=== PATIENT | female | born 1980 | race Caucasian/White ===

== ENCOUNTER 2021-09-01 22:16 | Emergency (ER) | payer OTHER ==
[2021-09-01 22:23] VITALS: RESP 18
[2021-09-01 23:31] LABS: Basophils % (A) 0 %; Eosinophils # (A) 0.3 k/uL (0-0.7); Eosinophils % (A) 3 %; HCT 40.5 % (34.0-46.0); HGB 13.4 gm/dL (11.4-16.0); Lymphocytes # (A) 2.9 k/uL (1.0-4.8); Lymphocytes % (A) 27 %; MCH 30.4 pg (25.0-35.0); MCHC 33.1 g/dL (31.0-37.0); MCV 91.9 fL (80.0-100.0); Mean Platelet Volume 7.5; Monocytes # (A) 0.4 k/uL (0-1.0); Monocytes % (A) 3 %; Neutrophils % (A) 65 %; Platelet Count 410 k/uL (150-450); RBC 4.41 m/uL (3.80-5.40); RDW 12.9 % (11.5-15.5); WBC 10.8 k/uL (3.8-10.6)
[2021-09-02 00:06] LABS: ALT 22 U/L (4-34); AST 31 U/L (14-36); African American GFR (CKD) >90 (>60 ml/min/1.73 sqM); Albumin 4.3 g/dL (3.5-5.0); Alkaline Phosphatase 78 U/L (38-126); Anion Gap 8 mmol/L; Blood Urea Nitrogen 11 mg/dL (7-17); Calcium 9.2 mg/dL (8.4-10.2); Carbon Dioxide 21 mmol/L (22-30); Chloride 107 mmol/L (98-107); Glucose 103 mg/dL (74-99); Non-African American GFR(CKD) >90 (>60 ml/min/1.73 sqM); Potassium 3.9 mmol/L (3.5-5.1); Sodium 136 mmol/L (137-145); Total Bilirubin 0.6 mg/dL (0.2-1.3); Total Protein 7.5 g/dL (6.3-8.2)
[2021-09-02 00:36] LABS: Appearance,Urine Clear (Clear); Bilirubin,Urine Negative (Negative); Blood,Urine Large (Negative); Color,Urine Light Red; Glucose,Urine (UA) Negative (Negative); Ketones,Urine Negative (Negative); Leukocyte Esterase,Urine Trace (Negative); Mucus,Urine Rare /hpf; Nitrite,Urine Negative (Negative); PH, Urine 5.5 (5.0-8.0); Protein,Urine 1+ (Negative); RBC,Urine >182 /hpf (0-5); Specific Gravity,Urine 1.014 (1.001-1.035); Urobilinogen,Urine <2.0 mg/dL (<2.0); WBC,Urine >182 /hpf (0-5)
--- NOTE | 2021-09-02 00:47 | ED ---
Abdominal Pain HPI - General Chief Complaint: Vaginal Bleeding Stated Complaint: Vaginal Bleeding,N/V,Back Pain Time Seen by Provider: 09/02/21 00:03 Source: patient, family, RN notes reviewed, old records reviewed Mode of arrival: wheelchair Limitations: no limitations - History of Present Illness Initial Comments: This is a 41-year-old female to the emergency department for evaluation. Patient coming in for evaluation multiple complaints patient feels very cold weak and tired. She does have significant back pain as well as abdominal pain. Patient has no other complaints. Patient does suffer from significantly heavy periods with significant amount of pain with her periods recently started on in control otherwise no medical history takes no medications does have history of fibroids but no surgeries MD Complaint: abdominal pain -: days(s) (4) Location: suprapubic Radiation: suprapubic, back Migration to: suprapubic, bilateral flank Severity: severe Severity scale (1-10): 8 Quality: aching, sharp Improves With: nothing Worsens With: nothing Associated Symptoms: nausea, fever Treatments Prior to Arrival: NSAIDs - Related Data Previous Rx's Medication Instructions Recorded Cephalexin [Keflex] 500 mg PO Q6HR #28 cap 09/02/21 Allergies Allergy/AdvReac Type Severity Reaction Status Date / Time No Known Allergies Allergy Verified 09/01/21 22:23 Review of Systems ROS Statement: Those systems with pertinent positive or pertinent negative responses have been documented in the HPI. ROS Other: All systems not noted in ROS Statement are negative. Past Medical History Past Medical History: No Reported History History of Any Multi-Drug Resistant Organisms: MRSA Date of last positivie culture/infection: 03/26/21 MDRO Source:: MRSA EAR Past Surgical History: No Surgical Hx Reported Past Psychological History: No Psychological Hx Reported Smoking Status: Current every day smoker Past Alcohol Use History: Rare Past Drug Use History: None Reported General Exam General appearance: alert, in no apparent distress, anxious Head exam: Present: atraumatic, normocephalic, normal inspection Eye exam: Present: normal appearance, PERRL, EOMI. Absent: scleral icterus, conjunctival injection, periorbital swelling ENT exam: Present: normal exam, mucous membranes moist Neck exam: Present: normal inspection. Absent: tenderness, meningismus, lymphadenopathy Respiratory exam: Present: normal lung sounds bilaterally. Absent: respiratory distress, wheezes, rales, rhonchi, stridor Cardiovascular Exam: Present: normal rhythm, tachycardia, normal heart sounds. Absent: systolic murmur, diastolic murmur, rubs, gallop, clicks GI/Abdominal exam: Present: soft, normal bowel sounds. Absent: distended, tenderness, guarding, rebound, rigid Extremities exam: Present: normal inspection, full ROM, normal capillary refill. Absent: tenderness, pedal edema, joint swelling, calf tenderness Back exam: Present: normal inspection Neurological exam: Present: alert, oriented X3, CN II-XII intact Psychiatric exam: Present: normal affect, normal mood Skin exam: Present: warm, dry, intact, normal color. Absent: rash Course Vital Signs 09/01/21 09/02/21 22:19 02:11 Temperature 100.3 F H Pulse Rate 111 H 82 Respiratory 18 18 Rate Blood Pressure 148/94 126/77 O2 Sat by Pulse 100 99 Oximetry - Reevaluation(s) Reevaluation #1: 09/02/21 01:35 Medical record is reviewed Reevaluation #2: 09/02/21 01:35 Patient informed of her recurrent fever Reevaluation #3: 09/02/21 03:00 Patient informed results and questions answered Reevaluation #4: 09/02/21 03:00 Patient does not currently feel like she might pass out Medical Decision Making - Medical Decision Making 41-year-old female DF for evaluation patient coming with excessive vaginal bleeding had a vaginal bleeding. Patient hemoglobin is not a treatable limit here in the emergency department. Patient will be placed on antibiotics secondary to fever likely UTI. Patient placed on antibiotics and can be discharged home - Lab Data Result diagrams: 09/01/21 23:21 09/01/21 23:21 Lab Results 09/01/21 09/01/21 09/02/21 Range/Units 23:21 23:21 00:24 WBC 10.8 H (3.8-10.6) k/uL RBC 4.41 (3.80-5.40) m/uL Hgb 13.4 (11.4-16.0) gm/dL Hct 40.5 (34.0-46.0) % MCV 91.9 (80.0-100.0) fL MCH 30.4 (25.0-35.0) pg MCHC 33.1 (31.0-37.0) g/dL RDW 12.9 (11.5-15.5) % Plt Count 410 (150-450) k/uL MPV 7.5 Neutrophils % 65 % Lymphocytes % 27 % Monocytes % 3 % Eosinophils % 3 % Basophils % 0 % Neutrophils # 7.0 (1.3-7.7) k/uL Lymphocytes # 2.9 (1.0-4.8) k/uL Monocytes # 0.4 (0-1.0) k/uL Eosinophils # 0.3 (0-0.7) k/uL Basophils # 0.0 (0-0.2) k/uL Sodium 136 L (137-145) mmol/L Potassium 3.9 (3.5-5.1) mmol/L Chloride 107 (98-107) mmol/L Carbon Dioxide 21 L (22-30) mmol/L Anion Gap 8 mmol/L BUN 11 (7-17) mg/dL Creatinine 0.63 (0.52-1.04) mg/dL Est GFR (CKD-EPI)AfAm >90 (>60 ml/min/1.73 sqM) Est GFR (CKD-EPI)NonAf >90 (>60 ml/min/1.73 sqM) Glucose 103 H (74-99) mg/dL Calcium 9.2 (8.4-10.2) mg/dL Total Bilirubin 0.6 (0.2-1.3) mg/dL AST 31 (14-36) U/L ALT 22 (4-34) U/L Alkaline Phosphatase 78 (38-126) U/L Total Protein 7.5 (6.3-8.2) g/dL Albumin 4.3 (3.5-5.0) g/dL Urine Color Light Red Urine Appearance Clear (Clear) Urine pH 5.5 (5.0-8.0) Ur Specific [place] 1.014 (1.001-1.035) Urine Protein 1+ H (Negative) Urine Glucose (UA) Negative (Negative) Urine Ketones Negative (Negative) Urine Blood Large H (Negative) Urine Nitrite Negative (Negative) Urine Bilirubin Negative (Negative) Urine Urobilinogen <2.0 (<2.0) mg/dL Ur Leukocyte Esterase Trace H (Negative) Urine RBC >182 H (0-5) /hpf Urine WBC >182 H (0-5) /hpf Urine Mucus Rare H (None) /hpf Urine HCG, Qual (Not Detectd) 09/02/21 Range/Units 00:24 WBC (3.8-10.6) k/uL RBC (3.80-5.40) m/uL Hgb (11.4-16.0) gm/dL Hct (34.0-46.0) % MCV (80.0-100.0) fL MCH (25.0-35.0) pg MCHC (31.0-37.0) g/dL RDW (11.5-15.5) % Plt Count (150-450) k/uL MPV Neutrophils % % Lymphocytes % % Monocytes % % Eosinophils % % Basophils % % Neutrophils # (1.3-7.7) k/uL Lymphocytes # (1.0-4.8) k/uL Monocytes # (0-1.0) k/uL Eosinophils # (0-0.7) k/uL Basophils # (0-0.2) k/uL Sodium (137-145) mmol/L Potassium (3.5-5.1) mmol/L Chloride (98-107) mmol/L Carbon Dioxide (22-30) mmol/L Anion Gap mmol/L BUN (7-17) mg/dL Creatinine (0.52-1.04) mg/dL Est GFR (CKD-EPI)AfAm (>60 ml/min/1.73 sqM) Est GFR (CKD-EPI)NonAf (>60 ml/min/1.73 sqM) Glucose (74-99) mg/dL Calcium (8.4-10.2) mg/dL Total Bilirubin (0.2-1.3) mg/dL AST (14-36) U/L ALT (4-34) U/L Alkaline Phosphatase (38-126) U/L Total Protein (6.3-8.2) g/dL Albumin (3.5-5.0) g/dL Urine Color Urine Appearance (Clear) Urine pH (5.0-8.0) Ur Specific [place] (1.001-1.035) Urine Protein (Negative) Urine Glucose (UA) (Negative) Urine Ketones (Negative) Urine Blood (Negative) Urine Nitrite (Negative) Urine Bilirubin (Negative) Urine Urobilinogen (<2.0) mg/dL Ur Leukocyte Esterase (Negative) Urine RBC (0-5) /hpf Urine WBC (0-5) /hpf Urine Mucus (None) /hpf Urine HCG, Qual Not Detected (Not Detectd) - Radiology Data Radiology results: report reviewed (CT head and pelvis is negative for significant acute findings), image reviewed Disposition Clinical Impression: UTI (urinary tract infection), Menorrhagia, Dysfunctional uterine bleeding, Vaginal bleeding Disposition: HOME SELF-CARE Condition: Fair Instructions (If sedation given, give patient instructions): Menorrhagia (ED) Prescriptions: Cephalexin [Keflex] 500 mg PO Q6HR #28 cap Is patient prescribed a controlled substance at d/c from ED?: No Referrals: Harris David MD [Primary Care Provider] - 1-2 days Esther Interiano DO [Doctor of Osteopathic Medicine] - 1-2 days
[2021-09-02] MEDS ORDERED: SODIUM CHLORIDE 0.9% 1,000 ML IV STA (00:59)
[2021-09-02] MEDS ORDERED: ACETAMINOPHEN TAB 500 MG TAB PO STA (01:00)
[2021-09-02] MEDS ORDERED: MORPHINE SULFATE 4 MG/ML SYRINGE IVP STA (01:00)
[2021-09-02] MEDS ORDERED: KETOROLAC 15 MG/ML 1 ML VIAL IVP STA (01:00)
--- NOTE | 2021-09-02 02:46 | CT ---
EXAMINATION TYPE: CT abdomen pelvis w con DATE OF EXAM: 09/02/2021 COMPARISON: None HISTORY: Abd Pain, N/V, Vaginal Bleeding CT DLP: 911.7 mGycm Automated exposure control for dose reduction was used. CONTRAST: Performed with IV Contrast, patient injected with 100 mL of Isovue 300. Images obtained from the diaphragm to the floor of the pelvis with IV contrast. Lung bases are clear. There is no pleural effusion. Heart size is normal. There is no pericardial eff usion. Liver spleen and stomach pancreas appear intact. There is single calcified gallstone. The bile ducts are not dilated. Gallbladder has normal size. There is no adrenal mass. Kidneys show satisfactory contrast opacification. There is no hydronephrosi s. Delayed images show normal renal excretion. There is no retroperitoneal adenopathy. There is a con e-shaped device in the vagina. The rectum appears normal. There is enlarged uterine fundus consistent with fibroids. There is no adnexal mass. No free fluid in the pelvis. Appendix is lateral and appear s small. There is no mesenteric edema. No ascites or free air. No bowel obstruction. IMPRESSION: There is a 3.6 cm diameter object in the vagina which is elongated and cylindrical and cone-shaped wi th some fluid at the upper end of the vagina. This could be a portion of the urinary bladder effaced and pinched off by the device.
[2021-09-02] MEDS ORDERED: ONDANSETRON 4 MG ODT STARTER PACK 2 TAB BTL PO STA (02:57)
[2021-09-02] MEDS ORDERED: CEPHALEXIN 500MG STARTER PACK 4 CAP BTL PO STA (02:57)
[2021-09-02] MEDS ORDERED: ACET/COD 300 MG/30 MG STARTER PACK 6 TAB BTL PO STA (02:57)
[2021-09-02] MEDS ORDERED: cefTRIAXone IN SWFI 1,000 MG/10 ML SYRINGE IVP STA (02:59)
[2021-09-02 03:13] VITALS: BP 124/79; PULSE 84; TEMP 98.8
== END 2021-09-02 03:15 | disposition home or self-care (01) ==
LOC: EC 22:16
DX: N92.0 Excessive and frequent menstruation with regular cycle (principal); N93.8 Other specified abnormal uterine and vaginal bleeding; N39.0 Urinary tract infection, site not specified; F17.200 Nicotine dependence, unspecified, uncomplicated
CPT/HCPCS: 36415; 80053; 85025; 81001; 81025; 74177; 99284; 96374; 96375 ×2; 96361; J2270; J0696; J1885; S0119; Q9967

== ENCOUNTER → 2022-01-22 | Outpatient (CLI) | payer OTHER ==
--- NOTE | 2022-01-23 09:42 | MM ---
Reason for Exam: Screening (asymptomatic). Last mammogram was performed 1 year(s) and 4 month(s) ago. Patient History: Hormonal Contraceptives for 4 years from age 37 until age 41. Risk Values: Elinor 5 year model risk: 0.4%. NCI Lifetime model risk: 6.7%. Prior Study Comparison: 09/13/2020 Bilateral MG screening mammo w CAD - 2, [facility]. Tissue Density: The breast tissue is extremely dense which could obscure a lesion on mammography. Findings: Analyzed By CAD. There is no suspicious group of microcalcifications or new suspicious mass in either breast. Stable benign-appearing calcifications bilaterally. Overall Assessment: Benign, BI-RAD 2 Management: Screening Mammogram of both breasts in 1 year. A clinical breast exam by your physician is recommended on an annual basis and results should be correlated with mammographic findings. Electronically signed and approved by: Franklin Ordonez D.O.
== END | disposition home or self-care (01) ==
LOC: RADMAMWWP 16:45
PROVIDERS: ATTEND Obstetrics & Gynecology
DX: Z12.31 Encounter for screening mammogram for malignant neoplasm of breast (principal); R92.1 Mammographic calcification found on diagnostic imaging of breast
CPT/HCPCS: 77063; 77067

== ENCOUNTER 2024-05-09 06:33 | Emergency (ER) | payer BC ==
[2024-05-09 06:51] VITALS: TEMP 97.5
--- NOTE | 2024-05-09 07:22 | ED ---
General Adult HPI - General Chief complaint: Nausea/Vomiting/Diarrhea Stated complaint: NVD, Fever, 4 weeks preg Time Seen by Provider: 05/09/24 06:56 Source: patient, RN notes reviewed Mode of arrival: ambulatory Limitations: no limitations - History of Present Illness Initial comments: 44-year-old G1, P0 female presents to the emergency department for evaluation of abdominal pain, nausea, vomiting. Patient reports that his symptoms started early this morning. Patient reports pain in the right side of her abdomen into her groin. She also reports pain in her right flank. She admits to nausea, vomiting, chills. No documented fever. She has not taken anything for her pain. Patient reports that her last menstrual period was April 05 and she recently had a positive test. She follows with Dr. Interiano for gynecology. - Related Data Previous Rx's Medication Instructions Recorded Cephalexin [Keflex] 500 mg PO Q6HR #28 cap 09/02/21 Cephalexin [Keflex] 500 mg PO Q6HR #40 cap 05/09/24 Doxylamine Succinate [Unisom] 25 mg PO DAILY #14 tab 05/09/24 Metoclopramide HCl [Reglan] 5 mg PO TID PRN #15 tablet 05/09/24 Allergies Allergy/AdvReac Type Severity Reaction Status Date / Time No Known Allergies Allergy Verified 05/09/24 06:51 Review of Systems ROS Statement: Those systems with pertinent positive or pertinent negative responses have been documented in the HPI. ROS Other: All systems not noted in ROS Statement are negative. Past Medical History Past Medical History: No Reported History History of Any Multi-Drug Resistant Organisms: MRSA Date of last positivie culture/infection: 03/26/21 MDRO Source:: MRSA EAR Past Surgical History: No Surgical Hx Reported Past Psychological History: No Psychological Hx Reported Smoking Status: Current every day smoker Past Alcohol Use History: Rare Past Drug Use History: None Reported General Exam Limitations: no limitations General appearance: alert, in no apparent distress Head exam: Present: atraumatic, normocephalic, normal inspection Eye exam: Present: normal appearance, PERRL, EOMI. Absent: scleral icterus, conjunctival injection, periorbital swelling ENT exam: Present: normal exam, mucous membranes moist Respiratory exam: Present: normal lung sounds bilaterally. Absent: respiratory distress, wheezes, rales, rhonchi, stridor Cardiovascular Exam: Present: regular rate, normal rhythm, normal heart sounds. Absent: systolic murmur, diastolic murmur, rubs, gallop, clicks GI/Abdominal exam: Present: soft, tenderness (Right lower abdomen), normal bowel sounds. Absent: distended, guarding, rebound, rigid Extremities exam: Present: normal inspection, full ROM, normal capillary refill. Absent: tenderness, pedal edema, joint swelling, calf tenderness Back exam: Present: CVA tenderness (R) Neurological exam: Present: alert, oriented X3 Psychiatric exam: Present: normal affect, normal mood Skin exam: Present: warm, dry, intact, normal color. Absent: rash Course Vital Signs 05/09/24 06:49 Temperature 97.5 F L Pulse Rate 92 Respiratory 18 Rate Blood Pressure 142/76 O2 Sat by Pulse 100 Oximetry Medical Decision Making - Medical Decision Making Was pt. sent in by a medical professional or institution (, PA, OFFC SPEC, urgent care, hospital, or group home...) When possible be specific @ -[No] Did you speak to anyone other than the patient for history (EMS, parent, family, police, friend...)? What history was obtained from this source @ -[Patient's provided some history of this patient] Did you review nursing and triage notes (agree or disagree)? Why? @ -[I reviewed and agree with nursing and triage notes] Were old charts reviewed (outside hosp., previous admission, EMS record, old EK G, old radiological studies, urgent care reports/EKG's, group home records)? Report findings @ -[No old charts were reviewed] Differential Diagnosis (chest pain, altered mental status, abdominal pain women, abdominal pain men, vaginal bleeding, weakness, fever, dyspnea, syncope, headache, dizziness, GI bleed, back pain, seizure, CVA, palpatations, mental health, musculoskeletal)? @ -[Differential Abdominal Pain Women: Appendicitis, Cholecystitis, diverticulosis, ischemic bowel, pancreatitis, hepatitis, UTI, gastroenteritis, AAA, incarcerated hernia, bowel obstruction, constipation, inflammatory bowel, hepatitis, peptic ulcer disease, splenic infarction, perforated viscus, vulvitis, ovarian torsion, PID, kidney stone, placenta abruption, this is not meant to be an all-inclusive list ] EKG interpreted by me (3pts min.). @ -None X-rays interpreted by me (1pt min.). @ -[None done] CT interpreted by me (1pt min.). @ -[None done] U/S interpreted by me (1pt. min.). @ -[None done] What testing was considered but not performed or refused? (CT, X-rays, U/S, labs)? Why? @ -[None] What meds were considered but not given or refused? Why? @ -[None] Did you discuss the management of the patient with other professionals (professionals i.e. , PA, OFFC SPEC, lab, RT, psych nurse, social worker clinical, hydrotherapist, teacher, promotion officer, case preparer and liner)? Give summary @ -[No] Was smoking cessation discussed for >3mins.? @ -[No] Was critical care preformed (if so, how long)? @ -[No] Were there social determinants of health that impacted care today? How? (Homelessness, low income, unemployed, alcoholism, drug addiction, transportation, low edu. Level, literacy, decrease access to med. care, usp, rehab)? @ -[No] Was there de-escalation of care discussed even if they declined (Discuss DNR or withdrawal of care, Hospice)? DNR status @ -[No] What co-morbidities impacted this encounter? (DM, HTN, Smoking, COPD, CAD, Cancer, CVA, ARF, Chemo, Hep., AIDS, mental health diagnosis, sleep apnea, morbid obesity)? @ -[None] Was patient admitted / discharged? Hospital course, mention meds given and route, prescriptions, significant lab abnormalities, going to OR and other pertinent info. @ -[hospital course] Undiagnosed new problem with uncertain prognosis? @ -[No] Drug Therapy requiring intensive monitoring for toxicity (Heparin, Nitro, Insulin, Cardizem)? @ -[No] Were any procedures done? @ -[No] Diagnosis/symptom? @ -[default] Acute, or Chronic, or Acute on Chronic? @ -[default] Uncomplicated (without systemic symptoms) or Complicated (systemic symptoms)? @ -[default] Side effects of treatment? @ -[No] Exacerbation, Progression, or Severe Exacerbation? @ -[No] Poses a threat to life or bodily function? How? (Chest pain, [place], [place], pneumonia, PE, COPD, DKA, ARF, appy, cholecystitis, CVA, Diverticulitis, Homicidal, Suicidal, threat to staff... and all critical care pts) @ -[No] - Lab Data Result diagrams: 05/09/24 08:08 05/09/24 08:08 Lab Results 05/09/24 05/09/24 05/09/24 Range/Units 08:08 08:08 11:16 WBC 18.7 H (3.8-10.6) k/uL RBC 4.54 (3.80-5.40) m/uL Hgb 12.3 (11.4-16.0) gm/dL Hct 37.4 (34.0-46.0) % MCV 82.4 (80.0-100.0) fL MCH 27.2 (25.0-35.0) pg MCHC 33.0 (31.0-37.0) g/dL RDW 16.9 H (11.5-15.5) % Plt Count 360 (150-450) k/uL MPV 8.0 Neutrophils % 91 % Lymphocytes % 6 % Monocytes % 2 % Eosinophils % 1 % Basophils % 0 % Neutrophils # 17.1 H (1.3-7.7) k/uL Lymphocytes # 1.1 (1.0-4.8) k/uL Monocytes # 0.3 (0-1.0) k/uL Eosinophils # 0.1 (0-0.7) k/uL Basophils # 0.0 (0-0.2) k/uL Anisocytosis Slight Sodium 136 L (137-145) mmol/L Potassium 4.3 (3.5-5.1) mmol/L Chloride 106 (98-107) mmol/L Carbon Dioxide 21 L (22-30) mmol/L Anion Gap 9 mmol/L BUN 9 (7-17) mg/dL Creatinine 0.66 (0.52-1.04) mg/dL Est GFR (CKD-EPI)AfAm >90 (>60 ml/min/1.73 sqM) Est GFR (CKD-EPI)NonAf >90 (>60 ml/min/1.73 sqM) Glucose 141 H (74-99) mg/dL Calcium 9.3 (8.4-10.2) mg/dL Total Bilirubin 0.8 (0.2-1.3) mg/dL AST 27 (14-36) U/L ALT 28 (4-34) U/L Alkaline Phosphatase 103 (38-126) U/L Total Protein 7.1 (6.3-8.2) g/dL Albumin 4.4 (3.5-5.0) g/dL Lipase 65 (23-300) U/L HCG, Quant 5250.4 mIU/mL Urine Color Colorless Urine Appearance Clear (Clear) Urine pH 5.5 (5.0-8.0) Ur Specific [place] 1.020 (1.001-1.035) Urine Protein Negative (Negative) Urine Glucose (UA) Negative (Negative) Urine Ketones 3+ H (Negative) Urine Blood Small H (Negative) Urine Nitrite Negative (Negative) Urine Bilirubin Negative (Negative) Urine Urobilinogen <2.0 (<2.0) mg/dL Ur Leukocyte Esterase Negative (Negative) Urine RBC 7 H (0-5) /hpf Urine WBC 1 (0-5) /hpf Ur Squamous Epith Cells 3 (0-4) /hpf Urine Bacteria Occasional H (None) /hpf Hyaline Casts 1 (0-2) /lpf Urine Mucus Few H (None) /hpf Disposition Clinical Impression: Abdominal pain Disposition: HOME SELF-CARE Condition: Stable Instructions (If sedation given, give patient instructions): Abdominal Pain in (ED) Additional Instructions: Please follow up with DIRECTOR OF PHYSICAL EDUCATION. Return to the emergency department for new or worsening symptoms. Prescriptions: Cephalexin [Keflex] 500 mg PO Q6HR #40 cap Metoclopramide HCl [Reglan] 5 mg PO TID PRN #15 tablet PRN Reason: Nausea Doxylamine Succinate [Unisom] 25 mg PO DAILY #14 tab Is patient prescribed a controlled substance at d/c from ED?: No Referrals: Harris David MD [Primary Care Provider] - 1-2 days
[2024-05-09] MEDS: METOCLOPRAMIDE 5 MG/ML 2 ML VIAL IVP STA ×2 (08:15→13:17)
[2024-05-09] MEDS: diphenhydrAMINE 50 MG/ML 1 ML VIAL IVP STA ×2 (08:15→13:17)
[2024-05-09] MEDS: SODIUM CHLORIDE 0.9% 1,000 ML IV ONE (08:16)
[2024-05-09 08:17] LABS: Anisocytosis Slight; Basophils % (A) 0 %; Eosinophils # (A) 0.1 k/uL (0-0.7); Eosinophils % (A) 1 %; HCT 37.4 % (34.0-46.0); HGB 12.3 gm/dL (11.4-16.0); Lymphocytes # (A) 1.1 k/uL (1.0-4.8); Lymphocytes % (A) 6 %; MCH 27.2 pg (25.0-35.0); MCV 82.4 fL (80.0-100.0); Monocytes # (A) 0.3 k/uL (0-1.0); Monocytes % (A) 2 %; Neutrophils # (A) 17.1 k/uL (1.3-7.7); Neutrophils % (A) 91 %; Platelet Count 360 k/uL (150-450); RBC 4.54 m/uL (3.80-5.40); RDW 16.9 % (11.5-15.5); WBC 18.7 k/uL (3.8-10.6)
--- NOTE | 2024-05-09 08:23 | US ---
EXAMINATION TYPE: US abdomen limited DATE OF EXAM: 05/09/2024 COMPARISON: NONE CLINICAL INDICATION: Female, 44 years old with history of 5 wks, pelvic, rt flank pain; Nausea, vomit ing, and diarrhea started this am TECHNIQUE: Grayscale and color Doppler imaging of the right upper quadrant was performed. FINDINGS: EXAM MEASUREMENTS: Liver Length: 13.4 cm Gallbladder Wall: 0.3 cm CBD: 0.4 cm Right Kidney: 11.4 x 5.6 x 5.1 cm MOSS GATHERER NOTES: Pancreas: wnl Liver: wnl Gallbladder: Mobile echogenic foci seen Evidence for sonographic Lopez's sign: No CBD: wnl Right Kidney: Prominent renal pelvis IMPRESSION: 1. No evidence for acute process. 2. Cholelithiasis. [facility], , 05/09/2024 8:21 AM
--- NOTE | 2024-05-09 08:24 | US ---
EXAMINATION TYPE: Transabdominal DATE OF EXAM: 05/09/2024 8:01 AM COMPARISON: NONE CLINICAL INDICATION: Female, 44 years old with history of 5 wks, pelvic, rt flank pain; TECHNIQUE: with grayscale and color Doppler imaging including first trimester . FINDINGS: EXAM MEASUREMENTS: GESTATIONAL AGE / DATING Physician Established: (4 weeks/6 days) EDC: 01/10/2025 Dates by LMP: (4 weeks/6 days) EDC: 01/10/2025 Dates by First Scan: No previous this is first scan ( weeks/ days) EDC: Dates by Current Scan for: (5 weeks/2 days) EDC: 01/07/2025 MATERNAL ANATOMY Uterus: ; Heterogenous area seen right mid uterus = 6.7 x 4.9 x 5.6 cm Right Ovary: 2.5 x 2.5 x 2.5 cm Left Ovary: Unable to insonate Post CDS / Adnexa: WNL Presence of free fluid: No Presence of corpus luteal cyst: Right Ovary Presence of subchorionic bleed: Yes GESTATION / SURVEY CRL: Too early to detect ( weeks/ days) Gestational Sac morphology: Normal Gestational Sac MSD: 0.65 (5 weeks/2 days) Yolk Sac (normal less than 6mm): 1.2 mm Heart Rate: Unable to detect bpm Rhythm: Unable to assess IUP: Yolk Sac seen within the gestational sac Nuchal Translucency 10-14wks (normal less than 3mm): NA Age Appropriate Anatomy Cord Insertion: NA Limbs: NA Calvarium: NA Date of LMP: 04/05/2024 Beta HcG (if available): ? Cervical motion tenderness - patient not able to tolerate exam well Patient stated bladder was full but unable to void - not able to visualize bladder IMPRESSION: 1. Intrauterine gestational sac with yolk sac identified corresponding to ultrasound age of 5 weeks 2 days. No pole or heart tones are identified at this time likely due to early gestational age. Recommend follow-up with pelvic ultrasound and serial beta hCG to ensure further development of the fetus. [facility], , 05/09/2024 8:22 AM
[2024-05-09 08:54] LABS: ALT 28 U/L (4-34); African American GFR (CKD) >90 (>60 ml/min/1.73 sqM); Albumin 4.4 g/dL (3.5-5.0); Anion Gap 9 mmol/L; Blood Urea Nitrogen 9 mg/dL (7-17); Calcium 9.3 mg/dL (8.4-10.2); Carbon Dioxide 21 mmol/L (22-30); Chloride 106 mmol/L (98-107); Glucose 141 mg/dL (74-99); Lipase 65 U/L (23-300); Non-African American GFR(CKD) >90 (>60 ml/min/1.73 sqM); Sodium 136 mmol/L (137-145); Total Bilirubin 0.8 mg/dL (0.2-1.3); Total Protein 7.1 g/dL (6.3-8.2)
[2024-05-09 08:57] LABS: Potassium 4.3 mmol/L (3.5-5.1)
[2024-05-09 08:58] LABS: AST 27 U/L (14-36); Alkaline Phosphatase 103 U/L (38-126)
[2024-05-09 09:07] LABS: HCG,Quantitative Serum 5250.4 mIU/mL
[2024-05-09 11:56] LABS: Appearance,Urine Clear (Clear); Bacteria,Urine Occasional /hpf; Bilirubin,Urine Negative (Negative); Blood,Urine Small (Negative); Color,Urine Colorless; Glucose,Urine (UA) Negative (Negative); Hyaline Casts,Urine 1 /lpf (0-2); Ketones,Urine 3+ (Negative); Leukocyte Esterase,Urine Negative (Negative); Mucus,Urine Few /hpf; Nitrite,Urine Negative (Negative); PH, Urine 5.5 (5.0-8.0); Protein,Urine Negative (Negative); RBC,Urine 7 /hpf (0-5); Squamous Epithelial Cell,Urine 3 /hpf (0-4); Urobilinogen,Urine <2.0 mg/dL (<2.0); WBC,Urine 1 /hpf (0-5)
[2024-05-09 13:28] VITALS: BP 150/90; PULSE 97; RESP 16
== END 2024-05-09 13:28 | disposition home or self-care (01) ==
LOC: EC 06:33
DX: O26.891 Other specified pregnancy related conditions, first trimester (principal); K80.20 Calculus of gallbladder without cholecystitis without obstruction; O99.331 Smoking (tobacco) complicating pregnancy, first trimester; F17.200 Nicotine dependence, unspecified, uncomplicated; Z3A.01 Less than 8 weeks gestation of pregnancy
CPT/HCPCS: 36415; 80053; 83690; 85025; 81001; 84702; 76705; 76801; 76817; 99284; 96374; 96376; 96375; 96361; J1200; J2765

== ENCOUNTER 2024-07-22 11:48 | Day surgery (SDC) | payer OTHER ==
[2024-07-22] MEDS ORDERED: Pre Op ABX Message 1 EACH MISC MISCELLANE ONE (12:15)
[2024-07-22] MEDS: LACTATED RINGERS 1,000 ML BAG IV STA (12:35)
[2024-07-22] MEDS: LACTATED RINGERS 1,000 ML IV ONE ×2 (12:35→13:22)
[2024-07-22] MEDS: LIDOCAINE 1% (10MG/ML) FOR IV START INTRADERMA STA (12:35)
[2024-07-22] MEDS: DEXAMETHASONE SOD PHOSPHATE 4 MG/ML 1 ML VIAL IVP STA (12:55)
[2024-07-22] MEDS: FAMOTIDINE 20 MG/2 ML VIAL IV STA (12:55)
[2024-07-22] MEDS: ONDANSETRON 4 MG/2 ML VIAL IVP STA (12:55)
[2024-07-22] MEDS ORDERED: LIDOCAINE 1% INJ 10MG/ML (20 ML MDV) ONE (12:57)
[2024-07-22] MEDS ORDERED: fentaNYL (PF) 50 MCG/ML 2 ML AMP ONE (12:57)
[2024-07-22] MEDS ORDERED: SUCCINYLCHOLINE CHLORIDE 200 MG/10 ML VIAL IV ONE (12:57)
[2024-07-22] MEDS ORDERED: MIDAZOLAM 2 MG/2 ML VIAL ONE (12:57)
[2024-07-22] MEDS ORDERED: PROPOFOL 10 MG/ML 20 ML VIAL IV ONE (12:57)
--- NOTE | 2024-07-22 13:24 | P.HPOB ---
History of Present Illness H&P Date: 07/22/24 Chief Complaint: incomplete 44 year old presents for suction D&C. She had a 14-week loss and has been bleeding on and off ever since. Her beta hCG is going down but she continues to have heavy bleeding with clots and her hemoglobin keeps dropping. We will take her for a suction D&C today Review of Systems All systems: negative Constitutional: Denies chills, Denies fever Eyes: denies blurred vision, denies pain Ears, nose, mouth and throat: Denies headache, Denies sore throat Cardiovascular: Denies chest pain, Denies shortness of breath Respiratory: Denies cough Gastrointestinal: Denies abdominal pain, Denies diarrhea, Denies nausea, Denies vomiting Genitourinary: Denies dysuria, Denies hematuria Musculoskeletal: Denies myalgias Integumentary: Denies pruritus, Denies rash Neurological: Denies numbness, Denies weakness Psychiatric: Denies anxiety, Denies depression Endocrine: Denies fatigue, Denies weight change Past Medical History Past Medical History: No Reported History Additional Past Medical History / Comment(s): miscarriage jul 2024. Gallstones History of Any Multi-Drug Resistant Organisms: MRSA Date of last positivie culture/infection: 03/26/21 MDRO Source:: MRSA EAR Past Surgical History: No Surgical Hx Reported Additional Past Surgical History / Comment(s): Wisom Teeth Past Anesthesia/Blood Transfusion Reactions: No Reported Reaction Past Psychological History: No Psychological Hx Reported Smoking Status: Current every day smoker Past Alcohol Use History: Rare Past Drug Use History: None Reported - Past Family History Father Family Medical History: Hypertension Medications and Allergies Home Medications Medication Instructions Recorded Confirmed Type Calcium Carbonate [Tums] 500 mg PO ONETIME PRN 07/11/24 07/22/24 History Ibuprofen [Advil] 600 mg PO ONETIME PRN 07/11/24 07/22/24 History Allergies Allergy/AdvReac Type Severity Reaction Status Date / Time No Known Allergies Allergy Verified 07/22/24 12:24 Exam Osteopathic Statement: *. No significant issues noted on an osteopathic structural exam other than those noted in the History and Physical/Consult. Vital Signs Temp Pulse Resp BP Pulse Ox 07/22/24 12:26 97.8 F 108 H 20 135/75 100 Intake and Output 07/21/24 07/22/24 07/22/24 22:59 06:59 14:59 Intake Total 1000 Balance 1000 Intake: IV 1000 Other: Weight 83.4 kg Heart: Regular rate and rhythm Lungs: Clear to auscultation bilaterally Abdomen: Soft, nontender Extremities: Negative Homans sign Assessment and Plan (1) Incomplete Current Visit: No Status: Acute Code(s): O03.4 - INCOMPLETE SPONTANEOUS WITHOUT COMPLICATION SNOMED Code(s): 631677049 (2) Acute blood loss anemia Current Visit: Yes Status: Acute Code(s): D62 - ACUTE POSTHEMORRHAGIC ANEMIA SNOMED Code(s): 303769788 Plan: 1. Suction D&C
--- NOTE | 2024-07-22 13:25 | P.OP ---
Date of Procedure: 07/22/24 Preoperative Diagnosis: 1. incomplete Postoperative Diagnosis: 1. incomplete Procedure(s) Performed: Suction D&C Anesthesia: JANNIE Surgeon: Esther Itneriano Estimated Blood Loss (ml): 75 IV fluids (ml): 1,000 Urine output (ml): 10 Pathology: other (Uterine contents) Condition: stable Disposition: PACU Operative Findings: Uterus sounded to 10 cm. Moderate amount of tissue and blood noted. Enlarged fibroid uterus Description of Procedure: Patient was taken the operating room where general anesthesia was obtained without difficulty. She is prepped draped normal sterile fashion dorsolithotomy position, legs placed in Donaldo stirrups. Bladder was drained of all urine. Weighted speculum placed in the vagina the anterior lip of the cervix was grasped with a single-tooth tenaculum. The cervix dilated to the #10 Hegar dilator. #10 curved suction curette was introduced into the uterus and passed several times to remove tissue and blood. Sharp curette was gently used to ensure that all tissue had been removed and the suction curette was introduced a few more times to remove the extra blood. All instruments removed from the vagina. Patient tolerated procedure well. Sponge and instrument counts correct x 2. She was taken to recovery in stable condition.
[2024-07-22 13:32] LABS: Basophils % (A) 0 %; Eosinophils # (A) 0.1 k/uL (0-0.7); Eosinophils % (A) 2 %; HCT 28.4 % (34.0-46.0); Hypochromasia Moderate; Lymphocytes # (A) 1.8 k/uL (1.0-4.8); Lymphocytes % (A) 24 %; MCH 27.7 pg (25.0-35.0); MCHC 32.5 g/dL (31.0-37.0); MCV 85.4 fL (80.0-100.0); Monocytes # (A) 0.3 k/uL (0-1.0); Monocytes % (A) 4 %; Neutrophils # (A) 5.2 k/uL (1.3-7.7); Neutrophils % (A) 68 %; Poikilocytosis Slight; RBC 3.33 m/uL (3.80-5.40); RDW 15.1 % (11.5-15.5); WBC 7.6 k/uL (3.8-10.6)
[2024-07-22 13:38] LABS: HGB 9.2 gm/dL (11.4-16.0); Platelet Count 503 k/uL (150-450)
[2024-07-22 13:49] VITALS: RESP 16; TEMP 98.4
[2024-07-22] MEDS: HYDROmorphone 0.5 MG/0.5 ML SYRINGE IVP SCH (13:51)
[2024-07-22 14:37] VITALS: BP 124/74; PULSE 82
== END 2024-07-22 15:07 | disposition home or self-care (01) ==
LOC: OR 11:48
PROVIDERS: ATTEND Obstetrics & Gynecology
DX: O03.4 Incomplete spontaneous abortion without complication (principal); K80.20 Calculus of gallbladder without cholecystitis without obstruction; K21.9 Gastro-esophageal reflux disease without esophagitis; F17.200 Nicotine dependence, unspecified, uncomplicated; Z82.49 Family history of ischemic heart disease and other diseases of the circulatory system; Z79.1 Long term (current) use of non-steroidal anti-inflammatories (NSAID); Z79.899 Other long term (current) drug therapy
CPT/HCPCS: 86900; 86901; 85025; 86850; 59812; J1100; J2405; J3490; J1171; 88305

== ENCOUNTER → 2024-10-14 | Outpatient (CLI) | payer OTHER ==
[2024-10-14 18:55] LABS: HCT 33.6 % (37.2-46.3); HGB 9.3 g/dL (12.0-15.0); MCH 20.3 pg (27.0-32.0); MCHC 27.7 g/dL (32.0-37.0); MCV 73.2 FL (80.0-97.0); NRBC Per 100 WBC 0 X 10*3/uL (0.00-0.01); Platelet Count 483 X 10*3/uL (140-440); RBC 4.59 X 10*6/uL (4.10-5.20); RDW 18.3 % (11.5-14.5); WBC 7.67 X 10*3/uL (4.50-10.00)
[2024-10-14 19:14] LABS: % Iron Saturation 3.15 (12.00-45.00); ALT 26 U/L (8-44); AST 25 U/L (13-35); Albumin 4.5 g/dL (3.8-4.9); Alkaline Phosphatase 110 U/L (41-126); BUN/Creat Ratio 10.57 Ratio (12.00-20.00); Blood Urea Nitrogen 7.4 mg/dL (9.0-27.0); Calcium 9.1 mg/dL (8.7-10.3); Carbon Dioxide 22.3 mmol/L (21.6-31.8); Chloride 105 mmol/L (96-109); Ferritin 6.7 ng/mL (10.0-291.0); Globulin 2.5 g/dL (1.6-3.3); Glucose 92 mg/dL (70-110); Iron 16 UG/DL (50-170); Potassium 4.1 mmol/L (3.5-5.5); Sodium 140 mmol/L (135-145); Total Bilirubin 0.5 mg/dL (0.3-1.2); Total Iron Binding Capacity 508 UG/DL (228-460)
== END | disposition home or self-care (01) ==
LOC: LABWHC1 12:22
PROVIDERS: ATTEND Family Medicine
DX: Z00.00 Encounter for general adult medical examination without abnormal findings (principal); E61.1 Iron deficiency
CPT/HCPCS: 36415; 80053; 80061; 82607; 82728; 82747; 83540; 83550; 85027

== ENCOUNTER → 2024-12-14 | Outpatient (CLI) | payer OTHER ==
[2024-12-14 15:20] LABS: HCT 37.2 % (37.2-46.3); HGB 10.8 g/dL (12.0-15.0); MCH 22.8 pg (27.0-32.0); MCHC 29.0 g/dL (32.0-37.0); MCV 78.5 FL (80.0-97.0); NRBC Per 100 WBC 0 X 10*3/uL (0.00-0.01); Platelet Count 381 X 10*3/uL (140-440); RBC 4.74 X 10*6/uL (4.10-5.20); RDW 25.1 % (11.5-14.5); WBC 6.48 X 10*3/uL (4.50-10.00)
[2024-12-14 15:33] LABS: Iron 39.0 UG/DL (50-170); Total Iron Binding Capacity 405.0 UG/DL (228-460)
[2024-12-14 15:51] LABS: Anisocytosis (M) 2+ (None Seen); Spherocytes 2+ (None Seen)
== END | disposition home or self-care (01) ==
LOC: LABWHC1 08:23
PROVIDERS: ATTEND Family Medicine
DX: D50.9 Iron deficiency anemia, unspecified (principal)
CPT/HCPCS: 36415; 83540; 83550; 85027

== ENCOUNTER → 2024-12-23 | Outpatient (CLI) | payer OTHER ==
--- NOTE | 2024-12-26 08:06 | MM ---
Reason for Exam: Screening (asymptomatic). Last mammogram was performed 1 year(s) and 10 month(s) ago. Patient History: Menarche at age 12. Patient has no children. Hormonal Contraceptives for 4 years from age 37 until age 41. Mother had breast cancer under age 50. Risk Values: Elinor 5 year model risk: 1.5%. NCI Lifetime model risk: 19.9%. Prior Study Comparison: 09/13/2020 Bilateral MG screening mammo w CAD - 2, [facility]. 01/22/2022 Bilateral MG 3D screening mammo w/cad, [facility]. 02/27/2023 Bilateral MG 3D screening mammo w/cad, [facility]. Tissue Density: The breasts are heterogeneously dense, which may obscure small masses. Findings: Analyzed By CAD. Diffuse bilateral punctate calcifications are redemonstrated. There is no suspicious group of microcalcifications or new suspicious mass in either breast. Overall Assessment: Benign, BI-RAD 2 Management: Screening Mammogram of both breasts in 1 year. See note below in regards to the patient's increased lifetime risk score score. Given the dense breast tissue, consideration can be given to supplementary screening with breast ultrasound. Patient should continue monthly self-breast exams. A clinical breast exam by your physician is recommended on an annual basis. This exam should not preclude additional follow-up of suspicious palpable abnormalities. Note on Elinor scores and lifetime risk: 1. A Elinor score greater than 3% is considered moderate risk. If this is the case, consider specialist referral to assess eligibility for a risk reducing agent. 2. If overall lifetime risk for the development of breast cancer is 20% or higher, the patient may qualify for future screening with alternating mammogram and breast MRI. [facility], , 12/26/2024 8:03 AM. Electronically signed and approved by: Jillian Roberts M.D. Radiologist
== END | disposition home or self-care (01) ==
LOC: RADMAMWWP 16:26
PROVIDERS: ATTEND Family Medicine
DX: Z12.31 Encounter for screening mammogram for malignant neoplasm of breast (principal); R92.333 Mammographic heterogeneous density, bilateral breasts; R92.1 Mammographic calcification found on diagnostic imaging of breast; Z80.3 Family history of malignant neoplasm of breast; Z92.0 Personal history of contraception
CPT/HCPCS: 77063; 77067